=== PATIENT | female | born 1945 | race Caucasian/White ===

== ENCOUNTER → 2023-07-31 08:37 | Outpatient (REF) | payer MEDICARE, BC, SELFPAY ==
[2023-07-31 09:48] LABS: ALT (SGPT) 17 U/L (0-35); AST (SGOT) 24 U/L (14-36); Albumin 4.4 g/dl (3.5-5.0); Alkaline Phosphatase 54 U/L (38-126); Blood Urea Nitrogen 21 mg/dl (7-17); Calcium 10.5 mg/dl (8.4-10.2); Carbon Dioxide 32 mmol/L (22-30); Chloride 101 mmol/L (98-107); Glucose 96 mg/dl (70-99); Potassium 4.6 mmol/L (3.5-5.1); Sodium 140 mmol/L (135-145); Total Bilirubin 0.7 mg/dl (0.2-1.3); eGFR > 60.00
[2023-07-31 09:57] LABS: Vitamin D, 25-OH*** 36.1 ng/mL (30-80)
== END ==
LOC: REG 08:37
PROVIDERS: ATTENDING PHYSICIAN Internal Medicine Rheumatology; FAMILY PHYSICIAN Family Medicine
DX: E55.9 Vitamin D deficiency, unspecified (principal); M81.0 Age-related osteoporosis without current pathological fracture; Z79.899 Other long term (current) drug therapy
CPT/HCPCS: 36415; 80053; 82306

== ENCOUNTER → 2023-08-28 10:17 | Outpatient (REF) | payer MEDICARE, BC, SELFPAY ==
[2023-08-28 11:33] LABS: Blood Urea Nitrogen 16 mg/dl (7-17); Calcium 9.5 mg/dl (8.4-10.2); Carbon Dioxide 27 mmol/L (22-30); Chloride 104 mmol/L (98-107); Glucose 100 mg/dl (70-99); Sodium 137 mmol/L (135-145); eGFR > 60.00
== END ==
LOC: RAD 10:17
PROVIDERS: ATTENDING PHYSICIAN Internal Medicine Rheumatology; FAMILY PHYSICIAN Family Medicine
DX: E55.9 Vitamin D deficiency, unspecified (principal); E83.52 Hypercalcemia; M15.9 Polyosteoarthritis, unspecified; M16.11 Unilateral primary osteoarthritis, right hip; M25.551 Pain in right hip; M25.552 Pain in left hip; M41.9 Scoliosis, unspecified; M50.90 Cervical disc disorder, unspecified, unspecified cervical region; M51.34 Other intervertebral disc degeneration, thoracic region; M51.37 Other intervertebral disc degeneration, lumbosacral region; M54.2 Cervicalgia; M81.0 Age-related osteoporosis without current pathological fracture; Z13.820 Encounter for screening for osteoporosis; Z79.899 Other long term (current) drug therapy
CPT/HCPCS: 36415; 73502; 73552; 80048; 82330

== ENCOUNTER → 2023-09-19 08:02 | Outpatient (REF) | payer MEDICARE, BC, SELFPAY | LOC: RAD 08:02 | PROVIDERS: ATTENDING PHYSICIAN Internal Medicine Rheumatology; FAMILY PHYSICIAN Family Medicine | DX: M81.0 Age-related osteoporosis without current pathological fracture (principal); Z13.820 Encounter for screening for osteoporosis | CPT/HCPCS: 77080 ==

== ENCOUNTER → 2023-12-20 09:00 | Outpatient (REF) | payer MEDICARE, BC, SELFPAY ==
[2023-12-20 09:46] LABS: % Eosinophils 1.2 % (0-6); % Immature Granulocytes 0.2 % (0-0.5); % Lymphocytes 37.2 % (20.5-51.1); % Monocytes 9.4 % (1.7-9.3); Absolute Eosinophils 0.1 10^3/uL (0-0.7); Absolute Lymphocytes 1.5 10^3/uL (1.2-3.4); Absolute Monocytes 0.4 10^3/uL (0.1-0.6); Absolute Neutrophils 2.1 10^3/uL (1.4-6.5); Hemoglobin 12.5 g/dL (12.0-16.0); Mean Corp Hgb Conc. 32.9 g/dL (33.0-37.0); Mean Corpuscular Hgb 30.3 pg (27.0-31.0); Mean Corpuscular Volume 92.2 fL (81.0-99.0); Mean Platelet Volume 9.8 fL (7.4-10.4); Nucleated Red Blood Cells % 0 %; Platelet Count 238 10^3/uL (130-400); Red Blood Cell Count 4.12 10^6/uL (4.20-5.40); Red Cell Dist. Width 12.3 % (11.5-14.5)
[2023-12-20 10:05] LABS: HDL Cholesterol 86 mg/dl; LDL Cholesterol, Calculated 106 mg/dl; Total Cholesterol 208 mg/dl (50-199); Triglyceride 80 mg/dl (10-149); Very Low Density Lipoprotein 16 mg/dl (0-30)
[2023-12-20 10:22] LABS: Free T4 1.45 ng/dl (0.78-2.19)
[2023-12-20 10:24] LABS: Urine Albumin Negative (Neg - Trace); Urine Bilirubin Negative (Negative); Urine Character Clear (Clear); Urine Color Yellow; Urine Glucose Negative (Negative); Urine Ketone Negative (Negative); Urine Leukocyte Negative (Negative); Urine Nitrite Negative (Negative); Urine Occult Blood Negative (Negative); Urine Urobilinogen Negative (Neg - 1+)
[2023-12-20 10:35] LABS: TSH 2.25 uIU/ml (0.47-4.68)
== END ==
LOC: REG 09:00
PROVIDERS: ATTENDING PHYSICIAN Family Medicine
DX: Z00.00 Encounter for general adult medical examination without abnormal findings (principal); E03.9 Hypothyroidism, unspecified; K21.9 Gastro-esophageal reflux disease without esophagitis
CPT/HCPCS: 36415; 80061; 81003; 84439; 84443; 85025

== ENCOUNTER → 2023-12-31 11:09 | Outpatient (REF) | payer MEDICARE, BC, SELFPAY ==
[2024-01-01 16:09] LABS: tTG IgA Antibody 6.1 EU/ml (0-19); tTG IgG Antibody 12.2 EU/ml (0-19)
[2024-01-01 23:28] LABS: Endomysial IgA Antibody Titer <1:10 (<1:10)
[2024-01-02 00:26] LABS: IgA 191 mg/dl (70-400)
== END ==
LOC: REG 11:09
PROVIDERS: ATTENDING PHYSICIAN Internal Medicine Gastroenterology; FAMILY PHYSICIAN Family Medicine
DX: R89.4 Abnormal immunological findings in specimens from other organs, systems and tissues (principal)
CPT/HCPCS: 36415; 82784; 83516; 86231

== ENCOUNTER → 2024-01-21 12:41 | Outpatient (REF) | payer MEDICARE, BC, SELFPAY | LOC: WDC 12:41 | PROVIDERS: ATTENDING PHYSICIAN Family Medicine | DX: Z12.31 Encounter for screening mammogram for malignant neoplasm of breast (principal) | CPT/HCPCS: 77063; 77067 ==

== ENCOUNTER → 2024-01-31 11:40 | Outpatient (REF) | payer MEDICARE, BC, SELFPAY | LOC: REG 11:40 | PROVIDERS: ATTENDING PHYSICIAN Internal Medicine Gastroenterology; FAMILY PHYSICIAN Family Medicine | DX: R19.7 Diarrhea, unspecified (principal) | CPT/HCPCS: 83993; 87045; 87046; 87328; 87329; 87427 ==

== ENCOUNTER → 2024-02-05 11:34 | Outpatient (REF) | payer MEDICARE, BC, SELFPAY ==
[2024-02-05 14:13] LABS: ALT (SGPT) 18 U/L (0-35); AST (SGOT) 26 U/L (14-36); Albumin 4.9 g/dl (3.5-5.0); Alkaline Phosphatase 58 U/L (38-126); Blood Urea Nitrogen 17 mg/dl (7-17); Calcium 10.2 mg/dl (8.4-10.2); Carbon Dioxide 26 mmol/L (22-30); Chloride 103 mmol/L (98-107); Glucose 86 mg/dl (70-99); Potassium 4.3 mmol/L (3.5-5.1); Sodium 137 mmol/L (135-145); Total Bilirubin 0.5 mg/dl (0.2-1.3); Total Protein 7.3 g/dl (6.3-8.2); eGFR > 60.00
== END ==
LOC: REG 11:34
PROVIDERS: ATTENDING PHYSICIAN Internal Medicine Rheumatology; FAMILY PHYSICIAN Family Medicine
DX: M16.11 Unilateral primary osteoarthritis, right hip (principal); M16.9 Osteoarthritis of hip, unspecified; M54.50 Low back pain, unspecified; E55.9 Vitamin D deficiency, unspecified; E83.52 Hypercalcemia; M15.9 Polyosteoarthritis, unspecified; M16.12 Unilateral primary osteoarthritis, left hip; M25.552 Pain in left hip; M41.9 Scoliosis, unspecified; M50.90 Cervical disc disorder, unspecified, unspecified cervical region; M51.34 Other intervertebral disc degeneration, thoracic region; M51.37 Other intervertebral disc degeneration, lumbosacral region; M54.2 Cervicalgia; M81.0 Age-related osteoporosis without current pathological fracture; Z79.899 Other long term (current) drug therapy
CPT/HCPCS: 36415; 72114; 73502; 80053

== ENCOUNTER → 2024-04-02 11:33 | Outpatient (REF) | payer MEDICARE, BC, SELFPAY | LOC: REG 11:33 | PROVIDERS: ATTENDING PHYSICIAN Internal Medicine Gastroenterology; FAMILY PHYSICIAN Family Medicine | DX: R19.7 Diarrhea, unspecified (principal) | CPT/HCPCS: 83993 ==

== ENCOUNTER → 2024-04-24 11:08 | Outpatient (REF) | payer MEDICARE, BC, SELFPAY | LOC: RAD 11:08 | PROVIDERS: ATTENDING PHYSICIAN Nurse Practitioner Family; FAMILY PHYSICIAN Family Medicine | DX: K58.2 Mixed irritable bowel syndrome (principal) | CPT/HCPCS: 74018 ==

== ENCOUNTER → 2024-04-28 13:52 | Outpatient (REF) | payer MEDICARE, BC, SELFPAY ==
[2024-04-28 17:30] LABS: Urine Albumin Negative (Neg - Trace); Urine Bilirubin Negative (Negative); Urine Character Clear (Clear); Urine Color Straw; Urine Glucose Negative (Negative); Urine Ketone Negative (Negative); Urine Leukocyte Negative (Negative); Urine Nitrite Positive (Negative); Urine Occult Blood Negative (Negative); Urine Specific Gravity 1.015 (<1.030); Urine Urobilinogen Negative (Neg - 1+)
[2024-04-28 17:48] LABS: Urine Bacteria Moderate (Negative); Urine Red Blood Cell 0-2 /HPF (0-2)
== END ==
LOC: CLAB 13:52
PROVIDERS: ATTENDING PHYSICIAN Obstetrics & Gynecology
DX: N30.90 Cystitis, unspecified without hematuria (principal)
CPT/HCPCS: 81003; 81015; 87086

== ENCOUNTER → 2024-07-29 08:46 | Outpatient (REF) | payer MEDICARE, BC, SELFPAY | LOC: REG 08:46 | PROVIDERS: ATTENDING PHYSICIAN Nurse Practitioner Family; FAMILY PHYSICIAN Family Medicine | DX: K58.2 Mixed irritable bowel syndrome (principal) | CPT/HCPCS: 83993 ==

== ENCOUNTER → 2024-08-04 12:54 | Outpatient (REF) | payer MEDICARE, BC, SELFPAY ==
[2024-08-04 13:38] LABS: Ionized Calcium 1.26 mMOL/L (1.15-1.33)
[2024-08-04 14:46] LABS: ALT (SGPT) 20 U/L (0-35); AST (SGOT) 27 U/L (14-36); Albumin 4.7 g/dl (3.5-5.0); Alkaline Phosphatase 49 U/L (38-126); Blood Urea Nitrogen 16 mg/dl (7-17); Calcium 9.7 mg/dl (8.4-10.2); Carbon Dioxide 28 mmol/L (22-30); Chloride 102 mmol/L (98-107); Glucose 111 mg/dl (70-99); Potassium 4.2 mmol/L (3.5-5.1); Sodium 138 mmol/L (135-145); Total Bilirubin 0.7 mg/dl (0.2-1.3); Total Protein 6.8 g/dl (6.3-8.2); eGFR > 60.00
== END ==
LOC: REG 12:54
PROVIDERS: ATTENDING PHYSICIAN Internal Medicine Rheumatology
DX: E83.52 Hypercalcemia (principal)
CPT/HCPCS: 36415; 80053; 82330

== ENCOUNTER → 2024-09-05 09:13 | Outpatient (REF) | payer MEDICARE, BC, SELFPAY | LOC: RAD 09:13 | PROVIDERS: ATTENDING PHYSICIAN Otolaryngology; FAMILY PHYSICIAN Family Medicine | DX: H71.92 Unspecified cholesteatoma, left ear (principal) | CPT/HCPCS: 70480 ==

== ENCOUNTER → 2024-12-22 07:35 | Outpatient (REF) | payer MEDICARE, BC, SELFPAY ==
[2024-12-22 09:32] LABS: Hematocrit 36.9 % (37.0-47.0); Hemoglobin 12.5 g/dL (12.0-16.0); Mean Corp Hgb Conc. 33.9 g/dL (33.0-37.0); Mean Corpuscular Volume 90.2 fL (81.0-99.0); Platelet Count 228 10^3/uL (130-400); Red Cell Dist. Width 12.7 % (11.5-14.5)
[2024-12-22 10:07] LABS: Iron 81 ug/dl (37-170)
[2024-12-22 10:45] LABS: Ferritin 57.9 ng/ml (11.1-264.0)
== END ==
LOC: RAD 07:35
PROVIDERS: ATTENDING PHYSICIAN Internal Medicine Gastroenterology; FAMILY PHYSICIAN Family Medicine
DX: R14.0 Abdominal distension (gaseous) (principal); K51.00 Ulcerative (chronic) pancolitis without complications
CPT/HCPCS: 36415; 76700; 82728; 83013; 83540; 83993; 85027

== ENCOUNTER → 2024-12-29 08:19 | Outpatient (REF) | payer MEDICARE, BC, SELFPAY ==
[2024-12-29 09:16] LABS: Hematocrit 34.6 % (37.0-47.0); Hemoglobin 11.5 g/dL (12.0-16.0); Mean Corp Hgb Conc. 33.2 g/dL (33.0-37.0); Mean Corpuscular Volume 90.6 fL (81.0-99.0); Nucleated Red Blood Cells % 0 %; Platelet Count 182 10^3/uL (130-400); Red Cell Dist. Width 13.0 % (11.5-14.5)
[2024-12-29 09:42] LABS: ALT (SGPT) 22 U/L (0-35); AST (SGOT) 27 U/L (14-36); Albumin 4.4 g/dl (3.5-5.0); Alkaline Phosphatase 47 U/L (38-126); Blood Urea Nitrogen 12 mg/dl (7-17); Calcium 9.2 mg/dl (8.4-10.2); Carbon Dioxide 25 mmol/L (22-30); Chloride 108 mmol/L (98-107); Glucose 99 mg/dl (70-99); HDL Cholesterol 75 mg/dl; LDL Cholesterol, Calculated 71 mg/dl; Potassium 4.1 mmol/L (3.5-5.1); Sodium 140 mmol/L (135-145); Total Protein 6.8 g/dl (6.3-8.2); Very Low Density Lipoprotein 16 mg/dl (0-30); eGFR > 60.00
[2024-12-29 10:09] LABS: TSH 2.60 uIU/ml (0.47-4.68)
[2024-12-29 10:13] LABS: Vitamin D, 25-OH*** 39.5 ng/mL (30-80)
== END ==
LOC: REG 08:19
PROVIDERS: ATTENDING PHYSICIAN Family Medicine
DX: K21.9 Gastro-esophageal reflux disease without esophagitis (principal); Z13.220 Encounter for screening for lipoid disorders; E03.9 Hypothyroidism, unspecified; M81.0 Age-related osteoporosis without current pathological fracture
CPT/HCPCS: 36415; 80053; 80061; 82306; 84439; 84443; 85025

== ENCOUNTER → 2025-01-26 08:16 | Outpatient (REF) | payer MEDICARE, BC, SELFPAY | LOC: WDC 08:16 | PROVIDERS: ATTENDING PHYSICIAN Obstetrics & Gynecology; FAMILY PHYSICIAN Family Medicine | DX: Z12.31 Encounter for screening mammogram for malignant neoplasm of breast (principal) | CPT/HCPCS: 77063; 77067 ==

== ENCOUNTER → 2025-02-02 11:24 | Outpatient (REF) | payer MEDICARE, BC, SELFPAY ==
[2025-02-02 12:25] LABS: Hematocrit 33.6 % (37.0-47.0); Hemoglobin 11.3 g/dL (12.0-16.0); Mean Corp Hgb Conc. 33.6 g/dL (33.0-37.0); Mean Corpuscular Volume 88.2 fL (81.0-99.0); Nucleated Red Blood Cells % 0 %; Platelet Count 234 10^3/uL (130-400); Red Cell Dist. Width 12.5 % (11.5-14.5)
[2025-02-02 14:38] LABS: ALT (SGPT) 15 U/L (0-35); AST (SGOT) 22 U/L (14-36); Albumin 4.5 g/dl (3.5-5.0); Alkaline Phosphatase 50 U/L (38-126); Blood Urea Nitrogen 14 mg/dl (7-17); Calcium 9.7 mg/dl (8.4-10.2); Carbon Dioxide 27 mmol/L (22-30); Chloride 106 mmol/L (98-107); Glucose 112 mg/dl (70-99); Potassium 4.5 mmol/L (3.5-5.1); Sodium 138 mmol/L (135-145); Total Protein 6.9 g/dl (6.3-8.2); eGFR > 60.00
[2025-02-02 14:50] LABS: Vitamin D, 25-OH*** 41.3 ng/mL (30-80)
== END ==
LOC: REG 11:24
PROVIDERS: ATTENDING PHYSICIAN Internal Medicine Rheumatology; FAMILY PHYSICIAN Family Medicine
DX: E55.9 Vitamin D deficiency, unspecified (principal); E83.52 Hypercalcemia; M15.9 Polyosteoarthritis, unspecified; M16.11 Unilateral primary osteoarthritis, right hip; M16.12 Unilateral primary osteoarthritis, left hip; M16.9 Osteoarthritis of hip, unspecified; M25.551 Pain in right hip; M25.552 Pain in left hip; M41.9 Scoliosis, unspecified; M50.90 Cervical disc disorder, unspecified, unspecified cervical region; M51.34 Other intervertebral disc degeneration, thoracic region; M54.2 Cervicalgia; M54.50 Low back pain, unspecified; M81.0 Age-related osteoporosis without current pathological fracture; Z79.899 Other long term (current) drug therapy
CPT/HCPCS: 36415; 80053; 82306; 85025

== ENCOUNTER → 2025-02-12 08:27 | Outpatient (REF) | payer MEDICARE, BC, SELFPAY ==
[2025-02-12 09:39] LABS: Hematocrit 35.9 % (37.0-47.0); Hemoglobin 12.2 g/dL (12.0-16.0); Mean Corp Hgb Conc. 34.0 g/dL (33.0-37.0); Mean Corpuscular Volume 89.5 fL (81.0-99.0); Nucleated Red Blood Cells % 0 %; Platelet Count 265 10^3/uL (130-400); Red Cell Dist. Width 12.5 % (11.5-14.5)
[2025-02-12 10:10] LABS: Iron 114 ug/dl (37-170)
[2025-02-12 10:46] LABS: Ferritin 52.5 ng/ml (11.1-264.0)
[2025-02-12 11:00] LABS: Vitamin B12 545 pg/ml (239-931)
== END ==
LOC: REG 08:27
PROVIDERS: ATTENDING PHYSICIAN Nurse Practitioner Adult Health; FAMILY PHYSICIAN Family Medicine
DX: D64.9 Anemia, unspecified (principal); Z79.899 Other long term (current) drug therapy
CPT/HCPCS: 36415; 82607; 82728; 83540; 85025

== ENCOUNTER → 2025-03-09 15:13 | Outpatient (REF) | payer MEDICARE, BC, SELFPAY ==
[2025-03-09 16:17] LABS: Hematocrit 35.8 % (37.0-47.0); Hemoglobin 12.4 g/dL (12.0-16.0); Mean Corp Hgb Conc. 34.6 g/dL (33.0-37.0); Mean Corpuscular Volume 88.8 fL (81.0-99.0); Nucleated Red Blood Cells % 0 %; Platelet Count 251 10^3/uL (130-400); Red Cell Dist. Width 12.4 % (11.5-14.5)
[2025-03-09 16:37] LABS: Iron 59 ug/dl (37-170)
[2025-03-09 16:47] LABS: Total Iron Binding Capacity 311 ug/dl (265-497)
[2025-03-09 17:13] LABS: Ferritin 65.3 ng/ml (11.1-264.0)
== END ==
LOC: REG 15:13
PROVIDERS: ATTENDING PHYSICIAN Physician Assistant; FAMILY PHYSICIAN Family Medicine
DX: D64.9 Anemia, unspecified (principal); M81.0 Age-related osteoporosis without current pathological fracture
CPT/HCPCS: 36415; 82728; 83540; 83550; 85025

== ENCOUNTER → 2025-03-11 11:14 | Outpatient (REF) | payer MEDICARE, BC, SELFPAY ==
[2025-03-11 11:44] LABS: Urine Character Clear (Clear)
== END ==
LOC: REG 11:14
PROVIDERS: ATTENDING PHYSICIAN Nurse Practitioner Adult Health; FAMILY PHYSICIAN Family Medicine
DX: R39.9 Unspecified symptoms and signs involving the genitourinary system (principal)
CPT/HCPCS: 81003; 87086

== ENCOUNTER 2025-03-13 09:50 | Emergency (ER) | payer MEDICARE, BC, SELFPAY ==
[2025-03-13 10:00] VITALS: BP 119/85
--- NOTE | 2025-03-13 12:20 | ED.GENMED ---
History of Present Illness
General
Chief Complaint: Skin Problem
Time Seen by Provider: 03/13/25 12:07
History of Present Illness
History of Present Illness:
79-year-old female presents to the emergency department for evaluation of an itchy rash to bilateral cheeks and forehead for the past 5 days. She notes this began after doing yard work and touching some plants. Denies any other skin involvement
with exception of mild irruption on the chest that is since resolved. Initially she went to urgent care was placed on a Medrol Dosepak, states that symptoms improved within the first 48 hours however again worsened. She her primary care physician
and started her on 40 mg of prednisone tapering, again states with high dose prednisone her symptoms improved before again worsening. She took 1 dose of Benadryl which did seem to help although it made her quite tired. Denies any dyspnea or chest
tightness
Past History
Past History
ED Past Medical History: GERD and Other (Chronic constipation, hypothyroidism, GERD, �2, osteopenia, status post cholecystectomy)
ED Past Surgical History: Cholecystectomy, and Other
Social History
Tobacco: Non-smoker
Alcohol: None
Drug: None
Personal:
Living: with family
Family History
Family History: Diabetes and Hypertension
Review of Systems
Review of Systems
Allergies reviewed?: Yes
All Other Systems: ROS reviewed and negative except as documented in HPI and ROS
Phy Exam
Physical Exam
Physical Exam:
GEN: Well appearing, NAD, WDWN
HEENT: Oral mucosa moist, no scleral icterus maculopapular exanthem to the malar distribution
Cardiac: Regular rate
Lung: No respiratory distress, no tachypnea
MSK: No gross deformity or injuries
Skin: Good color, no pallor or jaundice, no rashes
Neuro: AO x3, moves all extremities freely
Psych: Calm, cooperative
Course
Vital Signs
Initial and Last Documented VS:
Initial Vital Signs
Temp Pulse Resp BP Pulse Ox
98.6 F 89 18 119/85 100
03/13/25 10:00 03/13/25 10:00 03/13/25 10:00 03/13/25 10:00 03/13/25 10:00
Last Documented Vital Signs
Temp Pulse Resp BP Pulse Ox
98.6 F 89 18 119/85 100
03/13/25 10:00 03/13/25 10:00 03/13/25 10:00 03/13/25 10:00 03/13/25 12:21
MDM/Problems Addressed
MDM/Problems Addressed:
Will have patient take a short pulse dose of higher dose prednisone and add topical steroids for a brief course
*Pulse Oximetry
SaO2: 100
Oxygen Mode of Delivery: Room air
Patient hypoxic: no
*Critical Care Note
Total Time (30-74mins, 75-104mins- exclusive of procedures): Not Applicable
ED Attending Note
-
Portions of this chart may have been created with voice recognition software.� Occasional wrong word or��sound alike� substitutions may have occurred due to the inherent limitations of voice recognition software.
Discharge Plan
Departure
Patient Disposition: Home (Routine Discharge)
Date of Disposition: 03/13/25
Time of Disposition: 12:20
Patient with high blood pressure during this ER visit?: No
Discharge Problem:
Allergic contact dermatitis of face
Instructions: Contact dermatitis
Prescriptions:
New
triamcinolone acetonide 0.1 % lotion
1 applic topical BID 5 Days Qty: 60 0RF
No Action
Calcium + D 600 Mg Tablet
600 mg PO DAILY
polyethylene glycol 3350 17 GRAMS powder in packet
17 grams PO DAILYPRN PRN (Reason: constipation)
aspirin [Adult Low Dose Aspirin] 81 MG tablet,delayed release (DR/EC)
81 mg PO DAILY
Dulcolax:
1 tab PO PRN PRN (Reason: constipation)
famotidine 40 MG tablet
40 mg PO BID
raloxifene 60 MG tablet
60 mg PO DAILY
Bifidobacterium infantis [Align (B.infantis)] 4 MG capsule
4 mg PO DAILY
cyanocobalamin (vitamin B-12) 1,000 MCG tablet
1,000 mcg PO DAILY Qty: 30 0RF
ferrous sulfate [FeroSul] 325 MG tablet
325 mg PO DAILY Qty: 30 0RF
levothyroxine 75 MCG tablet
50 mcg PO DAILY@0700 Qty: 30 0RF
metronidazole 500 MG tablet
500 mg PO Q8 Qty: 21 0RF
Rx Instructions:
continue for 7 days
Referrals:
Irma Schmidt, [Family Provider, Family Practice]
Activity Restrictions/Additional Instructions:
Take 40mg prednisone (four tablets) daily for the next 3 days
Use the facial lotion twice daily for 3-5 days
Add over the counter cetirizine (Zyrtec) 10mg twice daily
DO NOT TAKE THE METHYLPREDNISOLONE PACK
Interventions
Interventions:
*Risk Screen - Suicide Last Done: 03/13/25 10:00
*General Assessment Last Done: 03/13/25 12:36
*Neglect/Abuse Screening Last Done: 03/13/25 10:00
*ED- Fall Risk Assessment Last Done: 03/13/25 12:36
*ED COVID-19 Vaccine History Last Done: 03/13/25 12:35
*Nursing Disposition Last Done: 03/13/25 12:36
ED-Skin Assessment Last Done: 03/13/25 12:37
Discharge Date and Time
Discharge Date/Time: 03/13/25 12:37
Print Language: CUBAN
== END 2025-03-13 12:37 | disposition home or self-care (01) ==
LOC: EMR 09:50
PROVIDERS: EMERGENCY PHYSICIAN Student in an Organized Health Care Education/Training Program; FAMILY PHYSICIAN Family Medicine
DX: L23.9 Allergic contact dermatitis, unspecified cause (principal); E03.9 Hypothyroidism, unspecified
CPT/HCPCS: 99282

== ENCOUNTER 2025-05-05 06:21 | Day surgery (SDC) | payer MEDICARE, BC, SELFPAY | END 2025-05-05 10:38 | disposition home or self-care (01) | LOC: GI 06:21 | PROVIDERS: ATTENDING PHYSICIAN Internal Medicine Gastroenterology | DX: R19.5 Other fecal abnormalities (principal); K64.9 Unspecified hemorrhoids; R14.0 Abdominal distension (gaseous); R12 Heartburn; K22.89 Other specified disease of esophagus; K63.5 Polyp of colon; K29.50 Unspecified chronic gastritis without bleeding; K29.80 Duodenitis without bleeding; K22.70 Barrett's esophagus without dysplasia; K86.89 Other specified diseases of pancreas | CPT/HCPCS: 45380; 43239; 88305; 88342 ==